=== PATIENT | male | born 1995 | race Caucasian/White ===

== ENCOUNTER 2021-08-24 21:23 | Emergency (ER) | payer OTHER, SELFPAY ==
[2021-08-24 21:36] VITALS: BP 133/67; PULSE 85; RESP 16; TEMP 36.9; O2SAT 100; BMI 22.8
== END 2021-08-24 22:28 | disposition left against medical advice (07) ==
PROVIDERS: Emergency Provider Emergency Medicine
CPT/HCPCS: 99281